=== PATIENT | female | born 1945 | race Caucasian/White ===

== ENCOUNTER 2020-01-23 15:18 | Emergency (ER) | payer MEDICARE, OTHER ==
--- NOTE | 2020-01-23 15:44 | EDM.PDOC ---
ED HPI GENERAL MEDICAL PROBLEM - General Chief Complaint: Headache Stated Complaint: Covid 19 +; headache Time Seen by Provider: 01/23/20 15:40 Source of Information: Reports: Patient History Limitations: Reports: No Limitations - History of Present Illness INITIAL COMMENTS - FREE TEXT/NARRATIVE: Rahul comes into the [facility] ED from the Clinic with a recent hx of Covid 19 diagnosed 1 week ago and sxs of headaches, heaviness in the neck and chest, nausea, intermittent diarrhea, and malaise over the past 3 weeks. There has been no reported fever, chills, sweats, back pain or ketan SOB. She is reportedly a borderline DM, diet controlled. headache Pain Score (Numeric/FACES): 8 - Related Data Allergies Allergy/AdvReac Type Severity Reaction Status Date / Time Sulfa (Sulfonamide Allergy Hives Verified 01/23/20 15:30 Antibiotics) Home Meds: Home Meds DULoxetine [Cymbalta] 60 mg PO DAILY 01/23/20 [History] LORazepam [Lorazepam] 1 mg PO BEDTIME 01/23/20 [History] ED ROS GENERAL - Review of Systems Review Of Systems: See Below Constitutional: Reports: Malaise, Weakness, Fatigue, Decreased Appetite HEENT: Reports: Other (frontal occipital headache) Respiratory: Reports: Cough (occ nonproductive cough, chest heaviness) Cardiovascular: Reports: No Symptoms Endocrine: Reports: Fatigue GI/Abdominal: Reports: Diarrhea, Decreased Appetite, Nausea : Reports: No Symptoms Musculoskeletal: Reports: Neck Pain (anternior neck heaviness) Skin: Reports: No Symptoms Neurological: Reports: Headache Psychiatric: Reports: No Symptoms Hematologic/Lymphatic: Reports: No Symptoms Immunologic: Reports: No Symptoms - Physical Exam Exam: See Below Exam Limited By: No Limitations General Appearance: Alert, WD/WN, No Apparent Distress Eye Exam: Bilateral Eye: EOMI, Normal Inspection, PERRL Ears: Normal External Exam Nose: Normal Inspection Throat/Mouth: Normal Inspection, Normal Oropharynx Head Exam: Atraumatic, Normocephalic Neck: Normal Inspection, Supple, Non-Tender, Full Range of Motion Respiratory/Chest: No Respiratory Distress, Lungs Clear, Normal Breath Sounds, No Accessory Muscle Use, Chest Non-Tender Cardiovascular: Regular Rate, Rhythm, No Murmur GI/Abdominal: Normal Bowel Sounds, Soft, Non-Tender, No Organomegaly, No Distention, No Mass (Female) Exam: Deferred Rectal (Female) Exam: Deferred Neuro Exam (Abbreviated): Alert, Oriented, CN II-XII Intact, Normal Cognition, No Motor/Sensory Deficits Back Exam: Normal Inspection Extremities: Normal Inspection Psychiatric: Normal Affect, Normal Mood Skin Exam: Warm, Dry, Intact, Normal Color, No Rash Course - Vital Signs Text/Narrative:: Following assessment, I obtained some screening labs including CBC, BMP, and UA are all baseline. Covid Syndrome is most likely disorder, without findings for complications. Last Recorded V/S: Last Vital Signs Temp 37.3 C 01/23/20 15:25 Pulse 81 01/23/20 15:25 Resp 17 01/23/20 15:25 BP 136/67 01/23/20 15:25 Pulse Ox 96 01/23/20 15:25 - Orders/Labs/Meds Labs: Laboratory Tests 01/23/20 01/23/20 Range/Units 15:55 15:55 WBC 4.8 (4.5-12.0) X10-3/uL RBC 4.15 (3.23-5.20) x10(6)uL Hgb 11.7 (11.5-15.5) g/dL Hct 36.1 (30.0-51.3) % MCV 87.0 (80-96) fL MCH 28.2 (27.7-33.6) pg MCHC 32.4 (32.2-35.4) g/dL RDW 14.0 (11.5-15.5) % Plt Count 218 (125-369) X10(3)uL MPV 7.4 (7.4-10.4) fL Neut % (Auto) 58.2 (46-82) % Lymph % (Auto) 31.3 (13-37) % Runnels % (Auto) 9.9 (4-12) % Eos % (Auto) 0 L (1.0-5.0) % Baso % (Auto) 0 (0-2) % Neut # (Auto) 2.8 (1.6-8.3) # Lymph # (Auto) 1.5 (0.6-5.0) # Runnels # (Auto) 0.5 (0.0-1.3) # Eos # (Auto) 0.0 (0.0-0.8) # Baso # (Auto) 0.0 (0.0-0.2) # Sodium 135 (135-145) mmol/L Potassium 3.6 (3.5-5.3) mmol/L Chloride 98 L (100-110) mmol/L Carbon Dioxide 28 (21-32) mmol/L BUN 10 (7-18) mg/dL Creatinine 0.6 (0.55-1.02) mg/dL Est Cr Clr Drug Dosing 60.88 mL/min Estimated GFR (MDRD) > 60 (>60) BUN/Creatinine Ratio 16.7 (9-20) Glucose 118 H (80-116) mg/dL Calcium 8.5 L (8.6-10.2) mg/dL Meds: Medications Discontinued Medications Generic Name Dose Route Start Last Admin Trade Name Freq PRN Reason Stop Dose Admin Ketorolac Tromethamine 30 mg 01/23/20 15:44 01/23/20 16:17 Toradol IM 01/23/20 15:45 30 mg ONETIME ONE Administration Departure - Departure Time of Disposition: 17:07 Disposition: Home, Self-Care 01 Condition: Fair Clinical Impression: COVID-19 - Discharge Information *PRESCRIPTION DRUG MONITORING PROGRAM REVIEWED*: Not Applicable *COPY OF PRESCRIPTION DRUG MONITORING REPORT IN PATIENT GOLDEN: Not Applicable Forms: ED Department Discharge Sepsis Event Note (ED) - Evaluation Sepsis Screening Result: No Definite Risk - Focused Exam Vital Signs: Vital Signs Temp Pulse Resp BP Pulse Ox 01/23/20 15:25 37.3 C 81 17 136/67 96 - Problem List & Annotations (1) COVID-19 SNOMED Code(s): 803581258 Code(s): U07.1 - COVID-19 Status: Acute Current Visit: Yes Annotation/Comment:: I dispensed Zofran ODT 4 mg for nausea, and Toradol 10 mg for headaches, advised rest and hydration. - Problem List Review Problem List Initiated/Reviewed/Updated: Yes - Assessment/Plan Plan: Follow up with PCP if sxs persist.
[2020-01-23] MEDS: Ketorolac 30 MG/ML SDV IM ONE (16:17)
--- NOTE | 2020-01-23 16:41 | CR ---
INDICATION: Sinus congestion. PARANASAL SINUSES: Three views of the paranasal sinuses revealed no evidence of thickening of the linings, air-fluid levels, opacification, or bony erosion to suggest sinusitis. MTDD
--- NOTE | 2020-01-23 16:47 | CR ---
INDICATION: COVID-19 positive. CHEST: PA and lateral views of the chest were obtained - no comparison. The heart, mediastinum, and bony thorax were fairly unremarkable. The aorta is tortuous. Minimal degenerative changes noted in the thoracic spine with a mild dextroconvex scoliosis in the mid thoracic spine. No consolidating pneumonia or effusion was seen. However, there is suggestion of some minimal patchy infiltrate along the right lateral chest peripherally. It should correlated clinically, minimal patchy pneumonia could be present in those areas. IMPRESSION: 1. Suggestion of minimal patchy pneumonia on the right. 2. ASD aorta. 3. Scoliosis and minimal degenerative changes thoracic spine. Report was given in person to Dr. Mas at approximately 1613 hours. [id number]
== END 2020-01-23 17:20 | disposition home or self-care (01) ==
LOC: FB.ED 15:18
DX: U07.1 COVID-19 (principal); Z88.2 Allergy status to sulfonamides; Z79.899 Other long term (current) drug therapy
CPT/HCPCS: 36415; 71046; 80048; 85025; 96372; 99284-25; J1885

== ENCOUNTER 2020-02-27 07:09 | Day surgery (SDC) | payer MEDICARE, OTHER ==
[2020-02-27] MEDS ORDERED: Lidocaine 2% 5 ML SDV INJECT ONE (07:10)
[2020-02-27] MEDS ORDERED: Propofol 200 MG/20 ML SDV IV ONE (07:10)
[2020-02-27] MEDS ORDERED: Sodium Chloride 0.9% 10 ML Syringe FLUSH PRN (07:15)
[2020-02-27] MEDS ORDERED: Lactated Ringers 1,000 ML IV SCH (07:15)
--- NOTE | 2020-02-27 08:53 | PCM.OPNOTE ---
- General Post-Op/Procedure Note Date of Surgery/Procedure: 02/27/20 Operative Procedure(s): egd with cold forcep biopsy Findings: gastritis irregular z line Pre Op Diagnosis: hx of gerd, epigastric abd pain Post-Op Diagnosis: gastritis, irregular z line Anesthesia Technique: MAC Primary Surgeon: Shaan Mccabe Anesthesia Provider: Joesph Iglesias Pathology: stomach and distal esophagus Complications: None Condition: Good Free Text/Narrative:: see dictation [id number]
--- NOTE | 2020-02-27 13:29 | OR ---
DATE OF OPERATION: 02/27/2020 SURGEON: Shaan Mccabe MD PROCEDURE PERFORMED: Esophagogastroduodenoscopy with cold forceps biopsy. PREOPERATIVE DIAGNOSES: 1. History of reflux disease. 2. Epigastric pain. POSTOPERATIVE DIAGNOSIS: 1. Gastritis. 2. An irregular Z-line. INDICATIONS FOR PROCEDURE: This is a 74-year-old white female who is referred. She has a history of reflux disease. She was offered and accepted an EGD. DESCRIPTION OF PROCEDURE: After an excellent IV sedation was administered, the bite block was inserted. Flexible endoscope was passed without difficulty down the patient's esophagus into her stomach. Stomach was insufflated. Scope was passed through the pylorus to the second portion of the duodenum and slowly withdrawn. The following findings were noted: Duodenum was unremarkable. Stomach, in the area of the antrum, some mild erythema was noted. Several biopsies were taken of the antrum as well as along the greater curve. On retroflexing the scope, there was no overt evidence of a hiatal hernia. The GE junction measured approximately 35 cm. The Z-line was highly irregular, suggestive of intestinal metaplasia. Half Section Ironer circumferential biopsies were taken. There was no evidence of any marked erythema noted in this area. The remainder of the esophageal exam was unremarkable. Stomach was deflated, and the scope was removed. The patient tolerated the procedure well and was taken to Recovery. /[id number] /SUEL
== END 2020-02-27 09:36 | disposition home or self-care (01) ==
LOC: FB.SDS 07:09
PROVIDERS: ATTEND Surgery
DX: K29.50 Unspecified chronic gastritis without bleeding (principal); K22.70 Barrett's esophagus without dysplasia; K21.00 Gastro-esophageal reflux disease with esophagitis, without bleeding; K22.8 Other specified diseases of esophagus; E78.00 Pure hypercholesterolemia, unspecified; I10 Essential (primary) hypertension; F32.9 Major depressive disorder, single episode, unspecified; E66.9 Obesity, unspecified; Z79.899 Other long term (current) drug therapy; Z88.2 Allergy status to sulfonamides; Z98.890 Other specified postprocedural states; Z68.29 Body mass index [BMI] 29.0-29.9, adult
CPT/HCPCS: 00731; 43239; 88305; 88313; 88342; J2001; J2704; J7120

== ENCOUNTER 2021-09-20 09:51 | Day surgery (SDC) | payer MEDICARE ==
[2021-09-20] MEDS ORDERED: Lidocaine 2% 100 MG/5 ML Syringe IVPUSH ONE (09:52)
[2021-09-20] MEDS ORDERED: Propofol 200 MG/20 ML SDV IV ONE (09:52)
[2021-09-20] MEDS ORDERED: Lactated Ringers 1,000 ML IV SCH (10:00)
[2021-09-20] MEDS ORDERED: Sodium Chloride 0.9% 10 ML Syringe FLUSH PRN (10:00)
== END 2021-09-20 12:14 | disposition home or self-care (01) ==
LOC: FB.SDS 09:51
PROVIDERS: ATTEND Surgery
DX: K22.70 Barrett's esophagus without dysplasia (principal); K44.9 Diaphragmatic hernia without obstruction or gangrene; K20.90 Esophagitis, unspecified without bleeding; E78.00 Pure hypercholesterolemia, unspecified; I10 Essential (primary) hypertension; E11.9 Type 2 diabetes mellitus without complications; F41.9 Anxiety disorder, unspecified; F32.A Depression, unspecified; Z79.899 Other long term (current) drug therapy; Z88.2 Allergy status to sulfonamides; Z79.82 Long term (current) use of aspirin; Z98.890 Other specified postprocedural states
CPT/HCPCS: 00731-QZ; 88305; 88313; J2704; J7120